=== PATIENT | female | born 1960 | race Caucasian/White ===

== ENCOUNTER 2022-11-11 14:04 | Outpatient (CLI) | payer MEDICARE | END 2022-11-11 14:05 | disposition home or self-care (01) | LOC: CSHMRI 14:04 | PROVIDERS: ATTEND Orthopaedic Surgery | DX: M25.511 Pain in right shoulder (principal); M75.31 Calcific tendinitis of right shoulder; M25.411 Effusion, right shoulder ==

== ENCOUNTER 2022-11-17 11:00 | Outpatient (CLI) | payer BC, MEDICARE | END 2022-11-17 11:01 | disposition home or self-care (01) | LOC: CSHMAMMO 11:00 | PROVIDERS: ATTEND Family Medicine | DX: Z12.31 Encounter for screening mammogram for malignant neoplasm of breast (principal); Z98.82 Breast implant status | CPT/HCPCS: 77063; 77067 ==

== ENCOUNTER 2024-04-22 13:06 | Outpatient (CLI) | payer MEDICARE | END 2024-04-22 13:07 | disposition home or self-care (01) | LOC: CSHMAMMO 13:06 | PROVIDERS: ATTEND Family Medicine | DX: Z78.0 Asymptomatic menopausal state (principal); Z13.1 Encounter for screening for diabetes mellitus; Z13.6 Encounter for screening for cardiovascular disorders; E03.9 Hypothyroidism, unspecified; R73.03 Prediabetes | CPT/HCPCS: 36415; 77080; 80053; 80061; 83036; 84443 ==